=== PATIENT | female | born 2005 | race Caucasian/White ===

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

== ENCOUNTER 2025-02-15 08:39 | Emergency (ER) | payer OTHER ==
[~2025-02-15] VITALS: Ht 162.6 cm; Wt 63.5 kg
[~2025-02-15 08:39] MED LIST changes: +AMOCLA875 PO
[2025-02-15 09:50] VITALS: BP 131/75
[2025-02-15] MEDS ORDERED: Ketorolac Tromethamine 30mg Vial IM ONE (10:50)
== END 2025-02-15 13:02 | disposition home or self-care (01) ==
LOC: ER 08:39
DX: M76.72 Peroneal tendinitis, left leg (principal)
CPT/HCPCS: 76882; 96372; 99284-25; J1885

== ENCOUNTER 2025-06-25 08:52 | Emergency (ER) | payer OTHER ==
[~2025-06-25] VITALS: Ht 160 cm; Wt 58.1 kg
[2025-06-25 09:40] VITALS: BP 128/88
[2025-06-25 09:56] LABS: BASOPHILS ABSOLUTE AUTO 0.09 K/mm3 (0.00-0.23); BASOPHILS PERCENT AUTO 1 % (0-2); EOSINOPHILS ABSOLUTE AUTO 0.24 K/mm3 (0.00-0.68); EOSINOPHILS PERCENT AUTO 2 % (0-6); Hematocrit 37.1 % (33.0-51.0); Hemoglobin 12.0 g/dL (11.5-16.0); IMMATURE GRAN ABSOLUTE AUTO 0.05 K/mm3 (0.00-0.10); IMMATURE GRAN PERCENT AUTO 1 % (0-1); LYMPHOCYTES ABSOLUTE AUTO 1.34 K/mm3 (0.84-5.20); LYMPHOCYTES PERCENT AUTO 12 % (21-46); MONOCYTES ABSOLUTE AUTO 0.85 K/mm3 (0.16-1.47); MONOCYTES PERCENT AUTO 8 % (4-13); Mean Corpuscular HGB Conc 32.3 g/dL (31.5-36.5); Mean Corpuscular Volume 90 fL (80-100); NEUTROPHILS ABSOLUTE AUTO 8.20 K/mm3 (1.96-9.15); NEUTROPHILS PERCENT AUTO 76 % (41-73); NRBC ABSOLUTE 0.00 K/mm3 (0.00-0.02); NRBC Auto 0.0 /100 WBC (0.0-0.2); Platelet Count 215 K/mm3 (150-400); RDW Coefficient Variation 13.2 % (11.7-14.2); RDW Standard Deviation 44.2 fL (35.1-46.3)
[2025-06-25 10:22] LABS: Alanine Aminotransfer (ALT/SGP 22.0 U/L (12-78); Albumin, Blood 3.6 g/dL (3.4-5.0); Albumin/Globulin Ratio 1.1 (0.8-1.8); Anion Gap 8.0 mmol/L (3-11); Aspartate Aminotrans (AST/SGOT 20.0 U/L (12-37); Bilirubin, Total 0.8 mg/dL (0.1-1.0); Blood Urea Nitrogen 7.0 mg/dL (8-24); CO2, Blood 26.0 mmol/L (21-32); Calcium, Blood 8.8 mg/dL (8.5-10.1); Chloride, Blood 111.0 mmol/L (98-108); Creatinine, Blood 0.71 mg/dL (0.40-1.00); Globulin, Blood 3.4 g/dL (2.2-4.0); Glucose, Blood 89.0 mg/dL (70-99); Potassium, Blood 4.8 mmol/L (3.5-5.5); Sodium, Blood 140.0 mmol/L (136-145); Total Protein, Blood 7.0 g/dL (6.4-8.2)
[2025-06-25] MEDS ORDERED: CLIN300 PO (11:48)
== END 2025-06-25 11:55 | disposition home or self-care (01) ==
LOC: ER 08:52
PROVIDERS: Physician Assistant
DX: K04.7 Periapical abscess without sinus (principal); L03.211 Cellulitis of face
CPT/HCPCS: 70487; 80053; 81025; 85025; 99283-25; Q9967

== ENCOUNTER 2025-11-02 19:25 | Emergency (ER) | payer OTHER ==
[~2025-11-02] VITALS: Ht 157.5 cm; Wt 50.4 kg
[2025-11-02 19:31] VITALS: BP 116/64
== END 2025-11-02 21:11 | disposition home or self-care (01) ==
LOC: ER 19:25
DX: M25.532 Pain in left wrist (principal); Z79.899 Other long term (current) drug therapy
CPT/HCPCS: 73110; 99283-25